=== PATIENT | female | born 1985 | race Caucasian/White ===

== ENCOUNTER 2019-05-26 12:57 | Emergency (ER) | payer OTHER ==
[~2019-05-26] VITALS: Ht 165.1 cm; Wt 63.0 kg
[2019-05-26] MEDS ORDERED: PRENATABS FA T1 EACH (13:10)
== END 2019-05-26 18:02 | disposition home or self-care (01) ==
LOC: ER 12:57
DX: N83.291 Other ovarian cyst, right side (principal); O34.81 Maternal care for other abnormalities of pelvic organs, first trimester; O23.40 Unspecified infection of urinary tract in pregnancy, unspecified trimester; O23.31 Infections of other parts of urinary tract in pregnancy, first trimester; Z3A.01 Less than 8 weeks gestation of pregnancy; R10.2 Pelvic and perineal pain

== ENCOUNTER 2019-06-20 23:54 | Emergency (ER) | payer OTHER ==
[~2019-06-20] VITALS: Ht 165.1 cm; Wt 64.0 kg
[~2019-06-20 23:54] MED LIST: PRENATABS FA T1 EACH
[2019-06-25] MEDS ORDERED: RHOGAM ULTR1500 UNIT (22:41)
== END 2019-06-21 12:23 | disposition home or self-care (01) ==
LOC: ER 23:54
DX: O02.1 Missed abortion (principal)

== ENCOUNTER → 2019-06-25 | Emergency (ER) | payer OTHER ==
[~2019-06-25] VITALS: Ht 165.1 cm; Wt 63.5 kg
[~2019-06-25] MED LIST changes: +RHOGAM ULTR1500 UNIT
== END | disposition home or self-care (01) ==
LOC: ER 22:31
DX: G89.18 Other acute postprocedural pain (principal)

== ENCOUNTER 2023-11-14 16:19 | Emergency (ER) | payer OTHER ==
[~2023-11-14] VITALS: Ht 165.1 cm; Wt 68.0 kg
[2023-11-14 17:02] LABS: HEMATOCRIT 40.9 % (36.0-45.00); HEMOGLOBIN 14.1 g/dL (12.0-15.00); MEAN CELL VOLUME 88.8 fL (80.00-100.00); MEAN CORPUSCULAR HEMOGLOBIN 30.5 pg (27.00-32.0); MEAN CORPUSCULAR HGB CONC 34.4 g/dl (32.0-36.0); PLATELET COUNT 249 K/uL (150-450); RED BLOOD COUNT 4.61 M/uL (4.00-6.00); RED CELL DISTRIBUTION WIDTH 12.8 % (11.5-14.5)
[2023-11-14 17:25] LABS: URINE APPEARANCE Clear; URINE BILIRRUBIN Negative (NEGATIVE); URINE BLOOD Negative; URINE COLOR Yellow; URINE GLUCOSE Negative (NEGATIVE); URINE LEUKOCYTE Negative; URINE NITRATE Positive; URINE PROTEIN Negative (NEGATIVE)
[2023-11-14 17:28] LABS: URINE EPITHELIAL CELLS 11.1 uL (0.0-38.8); URINE RBC 15.8 uL (0.0-20.8); URINE WBC 5.5 uL (0.0-23.2)
[2023-11-14 17:32] LABS: URINE BACTERIA > 9821.5 uL (0.0-1933)
[2023-11-14 17:38] LABS: CALCIUM 9.7 mg/dL (8.5-10.1); CREATININE SERUM 0.86 mg/dL (0.55-1.02); GFR 73.08; POTASSIUM 3.63 mEq/L (3.5-5.1)
== END 2023-11-14 19:10 | disposition home or self-care (01) ==
LOC: ER 16:19
PROVIDERS: General Practice
DX: N39.0 Urinary tract infection, site not specified (principal); R10.2 Pelvic and perineal pain

== ENCOUNTER 2024-04-04 01:26 | Emergency (ER) | payer OTHER ==
[~2024-04-04] VITALS: Ht 165.1 cm; Wt 75.3 kg
[~2024-04-04 01:26] MED LIST changes: +MAXFE CAPLET1 EAC1 PO
[2024-04-04] MEDS ORDERED: RINGERS SOLUTION,LACTATED 1,000 ML IV ONE (02:30)
[2024-04-04 03:26] LABS: HEMATOCRIT 42.2 % (36.0-45.00); HEMOGLOBIN 14.1 g/dL (12.0-15.00); MEAN CELL VOLUME 88.7 fL (80.00-100.00); MEAN CORPUSCULAR HEMOGLOBIN 29.7 pg (27.00-32.0); MEAN CORPUSCULAR HGB CONC 33.5 g/dl (32.0-36.0); PLATELET COUNT 262 K/uL (150-450); RED BLOOD COUNT 4.75 M/uL (4.00-6.00); RED CELL DISTRIBUTION WIDTH 14.2 % (11.5-14.5)
[2024-04-04 03:55] LABS: PARTIAL THROMBOPLASTIN TIME 30.8 SECONDS (22.0-34.0); PROTHROMBIN TIME 10.5 SECONDS (9.0-11.5)
[2024-04-04 04:29] LABS: ANION GAP 13 (10.0-20.0); BLOOD UREA NITROGEN 15 mg/dL (7-18); BUN CREA RATIO 19 (7.0-25.0); CARBON DIOXIDE 22 mEq/L (21-32); CHLORIDE 112 mmol/L (98-107); CREATININE SERUM 0.81 mg/dL (0.55-1.02); GFR 78.31; GLUCOSE FASTING 100 mg/dL (65-100); OSMOLALITY SERUM 286 MOSM/KG (275-295); POTASSIUM 4.01 mEq/L (3.5-5.1); SODIUM 143 mmol/L (136-145)
[2024-04-04 04:54] LABS: HCG QUANTITATIVE < 1 mUI/mL (1-3)
[2024-04-04 06:53] LABS: PH,URINE 5.5 (5.0-8.0); URINE APPEARANCE Clear; URINE BILIRRUBIN Negative (NEGATIVE); URINE BLOOD Large; URINE COLOR Yellow; URINE GLUCOSE Negative (NEGATIVE); URINE LEUKOCYTE Negative; URINE NITRATE Negative; URINE PROTEIN Negative (NEGATIVE); URINE UROBILINOGEN 0.2 E.U./dl
[2024-04-04 06:54] LABS: URINE RBC 133.7 uL (0.0-20.8); URINE WBC 2.4 uL (0.0-23.2)
== END 2024-04-04 07:24 ==
LOC: ER 01:26
PROVIDERS: General Practice
DX: N93.9 Abnormal uterine and vaginal bleeding, unspecified (principal); D25.9 Leiomyoma of uterus, unspecified; N83.201 Unspecified ovarian cyst, right side